=== PATIENT | male | born 1980 | race Caucasian/White ===

== ENCOUNTER 2017-02-04 11:40 | Emergency (ER) | payer OTHER ==
--- NOTE | 2017-02-04 12:11 | ER Document Report ---
HPI - HPI Patient complains to provider of: sore throat Pain Level: 3 Context: Patient is a 36-year-old male who comes emergency department for chief complaint of worsening sore throat for the past 3 days. He denies fever or chills, difficulty breathing, neck pain, cough. He states he also has a rash in both armpits. He states he thinks he might of been exposed to environmental substances at his job, he is a welder assistant, he states he has been wearing appropriate protection recently but he was exposed in the past, he has an ongoing workup for this. He denies any night sweats, weight loss, fever, difficulty breathing, or cough. Only other reported medical history is right knee pain, he currently is taking [place] for this and has an orthopedic follow- up for this. - DERM Skin Color: Normal Past Medical History - General Information source: Patient - Social History Smoking Status: Never Smoker Drug Abuse: None Lives with: Family Family History: Reviewed & Not Pertinent Renal/ Medical History: Denies: Hx Peritoneal Dialysis Musculoskeltal Medical History: Reports Hx Arthritis Surgical Hx: Negative - Immunizations Immunizations up to date: Yes Hx Diphtheria, Pertussis, Tetanus Vaccination: Yes Vertical Provider Document - CONSTITUTIONAL General Appearance: WD/WN, No Apparent Distress, Obese - INFECTION CONTROL TRAVEL OUTSIDE OF THE [place] IN LAST 30 DAYS: No - HEENT HEENT: Atraumatic, Normocephalic. negative: Normal ENT Exam - Erythema of the tonsils and posterior pharynx, right tonsil with a couple of accidents, no other abnormalities noted otherwise. - NECK Neck: Normal Inspection - RESPIRATORY Respiratory: Breath Sounds Normal, No Respiratory Distress O2 Sat by Pulse Oximetry: 98 - CARDIOVASCULAR Cardiovascular: Regular Rate, Regular Rhythm - GI/ABDOMEN Gastrointestinal: Abdomen Soft, Abdomen Non-Tender - MUSCULOSKELETAL/EXTREMETIES Musculoskeletal/Extremeties: MAEW, FROM, Non-Tender - NEURO Level of Consciousness: Awake, Alert, Appropriate - DERM Integumentary: Warm, Dry, Rash - Minimal erythema in both axillary areas, no induration or fluctuance, no other abnormalities noted Course - Re-evaluation Re-evalutation: Minimal erythema in both axillary areas, suggestive of sweat irritation but does not appear to be anything more significant. Erythematous throat with a couple of exudates, no significant findings otherwise. Strep is negative. Soft abdomen. Well-appearing patient. No evidence of abscess or other abnormality other than exudative pharyngitis. Discussed with patient, he is requesting to be treated regardless. He states he understands this could be viral. After discussion patient will be treated with Keflex, discussed treatment of the rash, discussed primary care follow-up and return precautions. Patient states understanding and agreement. - Vital Signs Vital signs: Temp Pulse Resp BP Pulse Ox 99 F 78 16 128/77 H 98 02/04/17 11:44 02/04/17 11:44 02/04/17 11:44 02/04/17 11:44 02/04/17 11:44 Discharge - Discharge Clinical Impression: Rash Pharyngitis Qualifiers: Pharyngitis/tonsillitis etiology: unspecified etiology Qualified Code(s): J02.9 - Acute pharyngitis, unspecified Condition: Stable Disposition: HOME, SELF-CARE Additional Instructions: You are being treated for a throat infection. Take the Keflex as prescribed to completion. Apply [place] or similar topical to your armpits, this appears to be dermatitis probably from sweating. Follow-up with primary care. Return to emergency department for any concerning or worsening symptoms including spiking fever, difficulty swallowing, or any other concerning symptoms. Prescriptions: Cephalexin Monohydrate [Keflex 500 mg Capsule] 500 mg PO BID #20 capsule Forms: Return to Work
[2017-02-04 12:59] VITALS: BP 136/80
== END 2017-02-04 13:00 | disposition home or self-care (01) ==
LOC: ER 11:40
DX: J02.9 Acute pharyngitis, unspecified (principal); R21 Rash and other nonspecific skin eruption
CPT/HCPCS: 87070; 87077; 87880; 99283